=== PATIENT | female | born 1975 | race Caucasian/White ===

== ENCOUNTER → 2022-07-06 08:20 | Outpatient (CLI) | payer OTHER, SELFPAY ==
--- NOTE | ~2022-07-06 | MR_ITS ---
EXAMINATION: MR brain/brain stem wo/w con DATE: 07/06/2022 09:02 INDICATION: Anosmia. TECHNIQUE: Magnetic resonance imaging (MRI) of the brain and brainstem was performed without and with 15 mL MultiHance intravenous contrast. COMPARISON: Brain MRI 05/23/2016, head CT 05/23/2016 FINDINGS: There is no intracranial hemorrhage, acute infarction, or abnormal intracranial mass lesion . The ventricles are normal in size. The orbits are normal. The paranasal sinuses are clear. There is a trace right mastoid effusion. IMPRESSION: 1. Normal brain. Reviewed, dictated and finalized at location A. IMPRESSION: 1. Normal brain.
== END ==
PROVIDERS: PCP Otolaryngology; Visit Provider Otolaryngology
DX: R43.0 Anosmia (principal)
CPT/HCPCS: 70553; A9577

== ENCOUNTER 2024-03-17 08:00 | Outpatient (CLI) | payer OTHER, SELFPAY ==
--- NOTE | ~2024-03-17 | MR_ITS ---
EXAMINATION: MR shoulder RT wo con DATE: 03/17/2024 08:32 INDICATION: Right shoulder pain. Rotator cuff tear. TECHNIQUE: Magnetic resonance imaging (MRI) of the right shoulder was performed without intravenous c ontrast. Sequences included axial PD-weighted FS FSE, coronal oblique PD-weighted FS FSE, coronal obl ique T2-weighted FS FSE, sagittal PD-weighted FS FSE, and sagittal T1-weighted SE. COMPARISON: None. FINDINGS: Coracoacromial arch: The acromion undersurface is flat in morphology (type I). The coracoacromial ligament is normal. Mild acromioclavicular osteoarthritis. Rotator cuff: Moderate supraspinatus and subscapularis tendinopathy without tear. Infraspinatus and teres minor ten dons are normal. Normal rotator cuff muscle bulk and signal. Biceps tendon, glenoid labrum and glenohumeral cartilage: Long head of the biceps tendon is normal. There is a superior, anterior to posterior tear of the carolynn oid labrum (SLAP tear) extending from the 12:00-11:00 position. Glenohumeral cartilage is normal. Fluid: Minimal glenohumeral joint effusion with proportional extension of a small amount of fluid along the long head biceps tendon sheath. No loose osteochondral bodies. No abnormal increased fluid in the sub acromial/subdeltoid bursa to suggest bursitis. Bones: Bone alignment is normal. No fracture or pathologic marrow replacing process. There is mild edema-lik e signal change at the medial neck of the humerus near the insertion of the capsule and inferior carolynn ohumeral ligaments which appear thickened which can be seen with adhesive capsulitis. Also suggesting adhesive capsulitis is thickened tissue is replacing the normal T1 fat signal at the rotator cuff in terval. IMPRESSION: 1. Thickened soft tissues at the rotator cuff interval and thickening of the capsule and inferior gle nohumeral ligaments at the axillary recess, both findings which can be seen with adhesive capsulitis which is ultimately a clinical diagnosis. 2. Small SLAP tear at the superior glenoid labrum. 3. Mild supraspinatus and infraspinatus tendinopathy without tear. Reviewed, dictated and finalized at location B. L CLERK IMPRESSION: 1. Thickened soft tissues at the rotator cuff interval and thickening of the ca psule and inferior glenohumeral ligaments at the axillary recess, both findings which can be seen with adhesive capsulitis which is ultimately a clinical diag nosis. 2. Small SLAP tear at the superior glenoid labrum. 3. Mild supraspinatus and infraspinatus tendinopathy without tear.
== END 2024-03-17 08:01 | disposition home or self-care (01) ==
LOC: GOSHIMG 08:01
PROVIDERS: PCP Physician Assistant; Visit Provider Orthopaedic Surgery
DX: S43.431A Superior glenoid labrum lesion of right shoulder, initial encounter (principal); M75.01 Adhesive capsulitis of right shoulder; M67.814 Other specified disorders of tendon, left shoulder; X58.XXXA Exposure to other specified factors, initial encounter
CPT/HCPCS: 73221